=== PATIENT | male | born 1960 | race African-American/Black ===

== ENCOUNTER 2016-12-07 10:12 | Emergency (ER) | payer OTHER ==
[~2016-12-07 10:12] MED LIST: ACETAMINOPHEN325 MG PO; ALDACTONE25 MG PO; ATENOLOL PO; CATAPRES0.1 MG PO; CHLORTHALIDONE25 MG PO; CLONIDINE HCL0.1 MG PO; COUMADIN5 MG PO; HCTZ PO; HYDRALAZINE HCL25 MG PO; HYDRALAZINE HCL50 MG PO; K-TAB ER20 MEQ PO; LASIX20 MG PO; LASIX80 MG PO; LIPITOR40 MG PO; LOVENOX80 MG/0.8 INJ; METFORMIN HCL500 M1 PO; MINOXIDIL2.5 MG PO; NICOTINE PATCH1 EACH TD; NICOTINE TRANSD14 MG EXT; NICOTINE TRANSDE7 MG TD; NORVASC PO; POTASSIUM CHLO10 MEQ PO; PRILOSEC40 MG PO; PRINIVIL10 MG PO; SIMVASTATIN40 MG PO; TENORMIN50 MG PO; XARELTO20 MG PO; ZESTRIL40 MG PO; ZOCOR PO
== END 2016-12-07 11:12 | disposition home or self-care (01) ==
LOC: CED 10:12 → CFTX 10:12
DX: R21 Rash and other nonspecific skin eruption (principal); Z90.89 Acquired absence of other organs
CPT/HCPCS: 99282